=== PATIENT | male | born 1970 | race Caucasian/White ===

== ENCOUNTER 2023-12-11 21:13 | Emergency (ER) | payer OTHER ==
[~2023-12-11] VITALS: Ht 152.4 cm; Wt 72.6 kg
[2023-12-11 21:34] VITALS: BP_SYST 111; PULSE 77; RESP 18; TEMP 97; O2SAT 99
[2023-12-11 22:12] LABS: BASOPHILS # (AUTO) 0.1 K/uL (0.0-0.2); HEMATOCRIT 43.3 % (36-54); MONOCYTES # (AUTO) 0.6 K/uL (0.0-1.0); RED CELL DISTRIBUTION WIDTH 13.6 % (9.0-15.0)
[2023-12-11 22:17] LABS: BILIRUBIN,URINE NEGATIVE (NEGATIVE); BLOOD, URINE NEGATIVE (NEGATIVE); CLARITY/URINE CLEAR (CLEAR); COLOR,URINE YELLOW (YELLOW); GLUCOSE,URINE 3+ (NEGATIVE); KETONES,URINE NEGATIVE (NEGATIVE); LEUKOCYTE ESTERASE ,URINE NEGATIVE (NEGATIVE); NITRITE, URINE NEGATIVE (NEGATIVE); PROTEIN URINE NEGATIVE (NEGATIVE); UROBILINOGEN,URINE 0.2 (0.2-1.0)
[2023-12-11 22:29] LABS: CALCIUM 8.5 mg/dL (8.4-11.0); CREATININE 0.83 mg/dL (0.55-1.30); POTASSIUM 3.8 mmol/L (3.5-5.1)
[2023-12-11 22:40] LABS: BASOPHILS % (AUTO) 1.2 % (0.0-2.0); EOSINOPHILS # (AUTO) 0.3 K/uL (0.0-0.4); EOSINOPHILS % (AUTO) 4.4 % (0.0-4.0); HEMOGLOBIN 14.7 g/dL (14.0-18.0); LYMPHOCYTES # (AUTO) 1.9 K/uL (1.0-5.5); LYMPHOCYTES % (AUTO) 26.6 % (20.5-51.5); MEAN CORPUSCULAR HEMOGLOBIN 31 pg (27-31); MEAN CORPUSCULAR HGB CONC 34 % (32-36); MEAN CORPUSCULAR VOLUME 90 fL (79.0-98.0); MONOCYTES % (AUTO) 8.7 % (1.7-9.3); NEUTROPHILS # (AUTO) 4.2 K/uL (1.8-7.7); NEUTROPHILS % (AUTO) 59.1 % (40.0-70.0); PLATELET COUNT (AUTO) 259 K/uL (130-430)
[2023-12-11 22:43] LABS: BACTERIA,URINE RARE /HPF (None Seen)
[2023-12-11] MEDS ORDERED: CIPR500T5 PO (23:12)
[2023-12-11] MEDS ORDERED: ONDA-8 TL (23:14)
[2023-12-11 23:20] VITALS: BP_SYST 111; PULSE 77; RESP 18; TEMP 97; O2SAT 99
== END 2023-12-11 23:20 | disposition home or self-care (01) ==
LOC: SED 21:13
DX: N39.0 Urinary tract infection, site not specified (principal); R11.2 Nausea with vomiting, unspecified; E11.9 Type 2 diabetes mellitus without complications; I10 Essential (primary) hypertension; E78.5 Hyperlipidemia, unspecified; Z79.899 Other long term (current) drug therapy; Z79.2 Long term (current) use of antibiotics; Z88.6 Allergy status to analgesic agent
CPT/HCPCS: 36415; 80048; 81000; 81001; 81015; 85025; 99283